=== PATIENT | male | born 1985 | race Caucasian/White ===

== ENCOUNTER 2016-11-08 21:11 | Emergency (ER) ==
[2016-11-08 22:08] LABS: APPEARANCE,URINE CLEAR; BILIRUBIN,URINE NEGATIVE (NEGATIVE); GLUCOSE, URINE NEGATIVE (NEGATIVE); KETONES,URINE NEGATIVE (NEGATIVE); LEUKOCYTE ESTERASE,URINE NEGATIVE (NEGATIVE); NITRITE,URINE NEGATIVE (NEGATIVE); PROTEIN,URINE NEGATIVE (NEGATIVE); URINE SPECIFIC GRAVITY 1.012; UROBILINOGEN,URINE NEGATIVE mg/dL (<2.0)
[2016-11-08 22:23] LABS: ALANINE AMINOTRANSFERASE 39 U/L (21-72); ALBUMIN 4.9 g/dL (3.5-5.0); ALKALINE PHOSPHATASE 72 U/L (38-126); ANION GAP 14 (5-19); ASPARTATE AMINO TRANSFERASE 34 U/L (17-59); BILIRUBIN,DIRECT 0.3 mg/dL (0.0-0.4); BILIRUBIN,TOTAL 0.6 mg/dL (0.2-1.3); BLOOD UREA NITROGEN 11 mg/dL (7-20); CARBON DIOXIDE 28 mmol/L (22-30); CHLORIDE 101 mmol/L (98-107); CREATININE RESULT 0.88 mg/dL (0.52-1.25); GLUCOSE 90 mg/dL (75-110); LIPASE 37.6 U/L (23-300); POTASSIUM 4.1 mmol/L (3.6-5.0); SODIUM 143.2 mmol/L (137-145); TOTAL PROTEIN 7.7 g/dL (6.3-8.2)
[2016-11-08 22:34] LABS: ABSOLUTE EOSINOPHILS # (AUTO) 0.2 10^3/uL (0.0-0.6); ABSOLUTE LYMPHOCYTES (AUTO) 1.9 10^3/uL (0.5-4.7); ABSOLUTE MONOCYTES (AUTO) 0.7 10^3/uL (0.1-1.4); ABSOLUTE NEUT (AUTO) 5.7 10^3/uL (1.7-8.2); BASOPHILS % (AUTO) 0.4 % (0-2); EOSINOPHILS % (AUTO) 2.8 % (0-6); HEMATOCRIT 45.4 % (37.9-51.0); HEMOGLOBIN 15.8 g/dL (13.5-17.0); LYMPHOCYTES % (AUTO) 22.3 % (13-45); MEAN CORPUSCULAR HEMOGLOBIN 31.6 pg (27.0-33.4); MEAN CORPUSCULAR HGB CONC 34.9 g/dL (32.0-36.0); MEAN CORPUSCULAR VOLUME 91 fl (80-97); MONOCYTES % (AUTO) 8.6 % (3-13); RED BLOOD COUNT 5.01 10^6/uL (4.35-5.55); RED CELL DISTRIBUTION WIDTH 13.2 % (11.5-14.0); SEGMENTED NEUTROPHILS % (AUTO) 65.9 % (42-78); WHITE BLOOD COUNT 8.6 10^3/uL (4.0-10.5)
== END 2016-11-09 04:31 | disposition left against medical advice (07) ==
LOC: ER 21:11
DX: Z53.9 Procedure and treatment not carried out, unspecified reason (principal); R05 Cough
CPT/HCPCS: 36415; 71020; 80053; 81001; 83690; 85025

== ENCOUNTER 2020-01-20 14:30 | Emergency (ER) | payer SELFPAY ==
--- NOTE | 2020-01-20 15:13 | EKG REPORT ---
SEVERITY:- NORMAL ECG - SINUS RHYTHM : Confirmed by: Mikael Franz MD 20-Jan-2020 15:13:27
[2020-01-20] MEDS ORDERED: ONDANSETRON HCL INJ/PF 4 MG/2 ML SDV IV ONE (15:22)
[2020-01-20] MEDS ORDERED: RINGERS SOLUTION,LACTATED 1,000 ML IV ONE (15:22)
[2020-01-20] MEDS ORDERED: MORPHINE SULFATE 10 MG/ML INJ IV PRN (15:22)
--- NOTE | 2020-01-20 15:24 | ER Document Report ---
ED Medical Screen (RME) - General Chief Complaint: Chest Pain Stated Complaint: CHEST PAIN Time Seen by Provider: 01/20/20 15:17 Mode of Arrival: Ambulatory Information source: Patient Notes: HPI; 34-year-old male presents emergency room complaining of mid epigastric pain and abdominal pain for the past 4 days. Complains of nausea but no vomiting. Has been taking Tylenol and ibuprofen with minimal relief. No shortness of breath, no difficulty breathing. No urinary symptoms. PE: Alert and oriented x3. Mild stress noted. Lungs: Clear to auscultation without rales rhonchi wheezes. Heart: Regular rate rhythm without murmurs rubs or gallops. Tender to palpation to the midepigastric region. No guarding, no rebound, abdomen distended. Unable to do full abdominal exam in triage. I have greeted and performed a rapid initial assessment of this patient. A comprehensive ED assessment and evaluation of the patient, analysis of test results and completion of the medical decision making process will be conducted by additional ED providers. I have specifically instructed the patient or family members with the patient to immediately return to any nursing staff should anything change in the patient's condition or with their chief complaint. TRAVEL OUTSIDE OF THE [place] IN LAST 30 DAYS: No - Related Data Allergies/Adverse Reactions: No Known Allergies Allergy (Verified 01/20/20 15:16) Home Medications: nexium. ibuprofen Past Medical History - Social History Chew tobacco use (# tins/day): No Frequency of alcohol use: Social Drug Abuse: None Renal/ Medical History: Denies: Hx Peritoneal Dialysis Physical Exam - Vital signs Vitals: Temp Pulse Resp BP Pulse Ox 99 F 87 14 133/78 H 99 01/20/20 14:38 01/20/20 14:38 01/20/20 14:38 01/20/20 14:38 01/20/20 14:38 Course - Vital Signs Vital signs: Temp Pulse Resp BP Pulse Ox 99.0 F 87 14 133/78 H 99 01/20/20 15:17 01/20/20 14:38 01/20/20 14:38 01/20/20 14:38 01/20/20 14:38
[2020-01-20 15:51] LABS: ABSOLUTE BASOPHILS # (AUTO) 0.1 10^3/uL (0.0-0.2); ABSOLUTE EOSINOPHILS # (AUTO) 0.1 10^3/uL (0.0-0.6); ABSOLUTE LYMPHOCYTES (AUTO) 1.6 10^3/uL (0.5-4.7); ABSOLUTE MONOCYTES (AUTO) 0.7 10^3/uL (0.1-1.4); ABSOLUTE NEUT (AUTO) 6.6 10^3/uL (1.7-8.2); BASOPHILS % (AUTO) 0.6 % (0-2); EOSINOPHILS % (AUTO) 1.4 % (0-6); HEMATOCRIT 45.1 % (37.9-51.0); HEMOGLOBIN 15.8 g/dL (13.5-17.0); MEAN CORPUSCULAR VOLUME 88 fl (80-97); PLATELET COUNT 318 10^3/uL (150-450); RED BLOOD COUNT 5.11 10^6/uL (4.35-5.55); RED CELL DISTRIBUTION WIDTH 12.9 % (11.5-14.0); TOTAL CELLS COUNTED % (AUTO) 100 %; WHITE BLOOD COUNT 9.1 10^3/uL (4.0-10.5)
--- NOTE | 2020-01-20 16:04 | RADIOLOGY REPORT (SQ) ---
EXAM DESCRIPTION: CT ABD/PELVIS WITH IV ONLY IMAGES COMPLETED DATE/TIME: 01/20/2020 3:54 pm REASON FOR STUDY: abdominal pain COMPARISON: None. TECHNIQUE: CT scan of the abdomen and pelvis performed using helical scanning technique with dynamic intravenous contrast injection. No oral contrast. Images reviewed with lung, soft tissue, and bone windows. Reconstructed coronal and sagittal MPR images reviewed. Delayed images for evaluation of the urinary system also acquired. All images stored on PACS. All CT scanners at this facility use dose modulation, iterative reconstruction, and/or weight based d osing when appropriate to reduce radiation dose to as low as reasonably achievable (ALARA). [facility]: Dose Right [facility]: CareDose [facility]: Dose Right [facility]: Teradose 4D [facility]: [employer] CONTRAST TYPE AND DOSE: 100 Isovue 370- low osmolar. RENAL FUNCTION: Not known RADIATION DOSE: . LIMITATIONS: None. FINDINGS: LOWER CHEST: No significant findings. No nodules or infiltrates. LIVER: Normal size. No masses. No dilated ducts. SPLEEN: Normal size. No focal lesions. PANCREAS: No masses. No significant calcifications. No adjacent inflammation or peripancreatic fluid collections. Pancreatic duct not dilated. GALLBLADDER: Contracted gallbladder with gallstone. ADRENAL GLANDS: No significant masses or asymmetry. RIGHT KIDNEY AND URETER: No solid masses. No significant calcifications. No hydronephrosis or hyd roureter. LEFT KIDNEY AND URETER: No solid masses. No significant calcifications. No hydronephrosis or hydr oureter. AORTA AND VESSELS: No aneurysm. No dissection. Renal arteries, SMA, celiac without stenosis. RETROPERITONEUM: No retroperitoneal adenopathy, hemorrhage or masses. BOWEL AND PERITONEAL CAVITY: No masses or inflammatory changes. No free fluid or peritoneal masses. APPENDIX: Normal. PELVIS: No mass. No free fluid. Normal bladder. ABDOMINAL WALL: No masses. No hernias. BONES: No significant or acute findings. OTHER: No other significant finding. IMPRESSION: Contracted gallbladder with gallstone. TECHNICAL DOCUMENTATION: JOB ID: [id number] Quality ID # [id number]: Final reports with documentation of one or more dose reduction techniques (e.g., Au tomated exposure control, adjustment of the mA and/or kV according to patient size, use of iterative reconstruction technique) 2010 [employer]- All Rights Reserved Reading location - IP/workstation name: [email or web address]
[2020-01-20 16:05] LABS: BLOOD UREA NITROGEN 20 mg/dL (7-20); CALCIUM 9.8 mg/dL (8.4-10.2); CARBON DIOXIDE 26 mmol/L (22-30); CHLORIDE 103 mmol/L (98-107); GLUCOSE 104 mg/dL (75-110); POTASSIUM 4.3 mmol/L (3.6-5.0)
[2020-01-20 16:06] LABS: ALBUMIN 4.8 g/dL (3.5-5.0); ALKALINE PHOSPHATASE 68 U/L (38-126); ANION GAP 11 (5-19); ASPARTATE AMINO TRANSFERASE 31 U/L (17-59); BILIRUBIN,TOTAL 0.7 mg/dL (0.2-1.3); CREATINE KINASE 130 U/L (55-170); TOTAL PROTEIN 7.9 g/dL (6.3-8.2)
[2020-01-20 16:16] LABS: CREATINE KINASE MB 1.83 ng/mL (<4.55)
[2020-01-20 16:17] LABS: TROPONIN I < 0.012 ng/mL
[2020-01-20 16:47] LABS: APPEARANCE,URINE CLEAR; BILIRUBIN,URINE NEGATIVE (NEGATIVE); COLOR,URINE YELLOW; GLUCOSE, URINE NEGATIVE (NEGATIVE); KETONES,URINE NEGATIVE (NEGATIVE); LEUKOCYTE ESTERASE,URINE NEGATIVE (NEGATIVE); NITRITE,URINE NEGATIVE (NEGATIVE); PROTEIN,URINE NEGATIVE (NEGATIVE); UROBILINOGEN,URINE NEGATIVE mg/dL (<2.0)
--- NOTE | 2020-01-20 17:16 | ER Document Report ---
ED General - General Mode of Arrival: Ambulatory TRAVEL OUTSIDE OF THE [place] IN LAST 30 DAYS: No - Related Data Home Medications: nexium. ibuprofen <CARMEN GOLDEN - Last Filed: 01/20/20 19:14> <STEFANIE SHANE IV - Last Filed: 01/21/20 06:11> - General Chief Complaint: Chest Pain Stated Complaint: CHEST PAIN Time Seen by Provider: 01/20/20 15:17 Primary Care Provider: JANIE OCHOA PA-C [Primary Care Provider] - Follow up as needed WINSTON SINGH MD [ACTIVE STAFF] - Follow up as needed Notes: 34-year-old man presents to the emergency department with a complaint of epigastric pain which has been ongoing for the past 6 weeks or greater. States that he quit smoking in July and has since that time picked up approximately 60 pounds in weight. He has been noticing increasing gas and increasing heartburn-like symptoms especially when he eats pizza or starchy foods. He is also been noticing discomfort to touch in the epigastric region over the past few days. (CARMEN GOLDEN) - Related Data Allergies/Adverse Reactions: No Known Allergies Allergy (Verified 01/20/20 15:16) Past Medical History - General Information source: Patient - Social History Smoking Status: Former Smoker Chew tobacco use (# tins/day): No Frequency of alcohol use: Social Drug Abuse: None Patient has homicidal ideation: No Renal/ Medical History: Denies: Hx Peritoneal Dialysis <CARMEN GOLDEN - Last Filed: 01/20/20 19:14> - General Information source: Patient - Social History Smoking Status: Former Smoker Family History: Reviewed & Not Pertinent <STEFANIE SHANE IV - Last Filed: 01/21/20 06:11> Review of Systems <CARMEN GOLDEN - Last Filed: 01/20/20 19:14> - Review of Systems Notes: Constitutional: Negative for fever. HENT: Negative for sore throat. Eyes: Negative for visual changes. Cardiovascular: Negative for chest pain. Respiratory: Negative for shortness of breath. Gastrointestinal: + Epigastric pain, + left upper quadrant pain Genitourinary: Negative for dysuria. Musculoskeletal: Negative for back pain. Skin: Negative for rash. Neurological: Negative for headaches, weakness or numbness. 10 point ROS negative except as marked above and in HPI. (CARMEN GOLDEN) Physical Exam <CARMEN GOLDEN - Last Filed: 01/20/20 19:14> - Vital signs Vitals: Temp Pulse Resp BP Pulse Ox 99 F 87 14 133/78 H 99 01/20/20 14:38 01/20/20 14:38 01/20/20 14:38 01/20/20 14:38 01/20/20 14:38 - Notes Notes: PHYSICAL EXAMINATION: Physical Exam: General: Well-nourished well-developed overweight male in mild distress secondary to epigastric pain HEENT: NC/AT, pupils equal round and reactive to light, MM moist,nares clear, oropharynx clear, airway patent Neck: supple, no adenopathy, no masses. Good range of motion Lungs: clear, no wheezing, no rales no rhonchi CVS: Regular rate and rhythm no murmur gallop or rub Abdomen: Soft, active, in the epigastric and left upper quadrant region, no guarding, no rebound, no masses. Ext: No edema, clubbing or cyanosis. Neuro: Alert and responsive, moving all 4 extremities on command, cranial nerves intact, no focal findings Skin: Intact no open lesions, no rash PSYCH: Normal mood, normal affect. (CARMEN GOLDEN) Course - Laboratory Result Diagrams: 01/20/20 15:37 01/20/20 15:37 - Diagnostic Test Radiology reviewed: Image reviewed, Reports reviewed - EKG Interpretation by Nv EKG shows normal: Sinus rhythm - EKG reveals: Normal sinus rhythm with rate of 89, no acute ST or T wave abnormalities, normal axis. <CARMEN GOLDEN - Last Filed: 01/20/20 19:14> - Laboratory Result Diagrams: 01/20/20 15:37 01/20/20 15:37 <STEFANIE SHANE IV - Last Filed: 01/21/20 06:11> - Re-evaluation Re-evalutation: 01/20/20 19:18 Patient describes history of acid reflux and also history of gall stones. CT scan performed today revealed gallstones and a contracted gallbladder. His LFTs are normal and his WBC count is also normal. A lipase has been added to the lab work as well as a gallbladder ultrasound. Patient is given Toradol and a GI cocktail for symptoms. If the gallbladder ultrasound is not remarkable, he may be discharged home with high-dose PPI and Carafate. I would suggest follow-up with gastroenterology for upper endoscopy. (CARMEN GOLDEN) - Vital Signs Vital signs: Temp Pulse Resp BP Pulse Ox 98.1 F 66 16 157/90 H 96 01/20/20 21:01 01/20/20 21:01 01/20/20 21:01 01/20/20 21:01 01/20/20 21:01 - Laboratory Laboratory results interpreted by me: 01/20/20 14:33 Urine Ascorbic Acid 40 H I have reviewed laboratory data and used this information for the treatment decisions regarding the patient. (CARMEN GOLDEN) - Diagnostic Test Radiology results interpreted by la: 01/20/20 19:27 CT abdomen and pelvis with IV contrast reveals: No acute intra-abdominal findings, the gallbladder contracted and positive gallstones. (CARMEN GOLDEN) Discharge <CARMEN GOLDEN - Last Filed: 01/20/20 19:14> <STEFANIE SHANE IV - Last Filed: 01/21/20 06:11> - Discharge Clinical Impression: Esophagitis, Epigastric pain, Sinusitis GERD (gastroesophageal reflux disease) Qualifiers: Esophagitis presence: esophagitis presence not specified Qualified Code(s): K21.9 - Gastro-esophageal reflux disease without esophagitis Condition: Good Disposition: HOME, SELF-CARE Instructions: Esophagitis (OM) Additional Instructions: He was diagnosed with epigastric abdominal pain likely secondary to reflux and esophagitis. You are being prescribed medications Protonix and Carafate to begin as an outpatient for treatment. Because her symptoms have been consistent over the past few weeks, a referral for gastroenterology and upper endoscopy is recommended. Please see your primary care doctor for a referral or you may call the prepared foods associate whose name you have been provided to see if they will see you as a referral from the emergency department. If your symptoms are worsening or if you have other concerns you may return to the emergency department for further evaluation and treatment. HOME CARE INSTRUCTIONS & INFORMATION: Thank you for choosing us for your medical needs. We hope you're satisfied with the care you received. After you leave, you must properly care for your problem and, at the same time, observe its progress. Any condition can change. Some illnesses can change rapidly over hours or days. If your condition worsens, return to the Emergency Department or see your physician promptly. ABOUT YOUR X-RAYS AND EKG'S: If you had an EKG or X-rays taken, they have been read by the Emergency Physician. The X-rays and EKG's will also be read by a Radiologist or [employer] within 24 hours. If discrepancies are noted, you will be notified by telephone. Please be certain the ED has a correct telephone number & address where you can be reached. Also, realize that some fractures or abnormalities do not show up on initial X-rays. If your symptoms continue, see your physician. ABOUT YOUR LABORATORY TEST: If you had laboratory tests, the results have been reviewed by the Emergency Physician. Some test results (for example cultures) may not be available for several days. You will be contacted if any test result shows you need additional treatment. Please be certain the ED has a correct telephone number and address where you can be reached. ABOUT YOUR MEDICATIONS: You will receive instructions on how to take your medicine on the prescription label you receive. Additional information may be provided by the Pharmacy. If you have questions afterwards, call the ED for clarification or further instructions. Some prescribed medications may cause drowsiness. Do not perform tasks such as driving a car or operating machinery without consulting your Pharmacist. If you feel you need a refill of pain medication, your condition will need re-evaluation. Please do not call for a refill of any medication. ABOUT YOUR SIGNATURE: Signature of this document acknowledges to followin. Understanding that you received emergency treatment and that you may be released before al medical problems are known or treated. Please be certain the ED has a correct phone number & address where you can be reached. 2. Acknowledgement that you will arrange for follow-up care as recommended. 3. Authorization for the Emergency Physician to provide information to your follow-up Physician in order to maximize your care. AT ANY TIME, IF YOUR SYMPTOMS CHANGE SIGNIFICANTLY OR WORSEN OR YOU DEVELOP NEW SYMPTOMS, RETURN TO THE EMERGENCY DEPARTMENT IMMEDIATELY FOR RE-EVALUATION. OUR GOAL IS TO PROVIDE EXCELLENT MEDICAL CARE! WE HOPE THAT WE HAVE MET YOUR EXPECTATIONS DURING YOUR EMERGENCY DEPARTMENT VISIT AND THAT YOU FEEL YOU HAVE RECEIVED EXCELLENT CARE! Sinusitis You have sinusitis, an infection of the sinus cavities of the face. The sinuses are air-filled chambers which open into the inside of the nose. Bacteria and pus fill a sinus, causing pain, drainage, and fever. Sinusitis is treated with antibiotics. Often, expectorants (to thin the sinus mucous) or decongestants (to reduce swelling) are prescribed as well. Healing requires seven to 10 days. Avoid chemical fumes, pollens, dusts, and smoke (especially cigarette smoke). Keep the air humidified in your bedroom and work area and take plenty of liquids by mouth. This condition can be serious if the infection spreads. If your symptoms worsen, or if you develop severe headache, high fever, stiff neck, or a rash, you must call the doctor or return for re-evaluation. Prescriptions: Sucralfate [Carafate 1 gm Tablet] 1 gm PO ACHS #60 tablet Levofloxacin [Levaquin 750 mg Tablet] 750 mg PO DAILY 5 Days #5 tablet Pantoprazole Sodium [Protonix] 40 mg PO DAILY #20 tablet. Referrals: JANIE OCHOA PA-C [Primary Care Provider] - Follow up as needed WINSTON SINGH MD [ACTIVE STAFF] - Follow up as needed
[2020-01-20 17:21] LABS: URINE SPECIFIC GRAVITY > 1.060
[2020-01-20] MEDS ORDERED: KETOROLAC TROMETHAMINE INJ/PF 30 MG/1 ML SDV IV ONE (18:26)
[2020-01-20] MEDS ORDERED: METOCLOPRAMIDE HCL ORAL SOLN 10 MG/10 ML UDCUP PO ONE (18:27)
[2020-01-20] MEDS ORDERED: LIDOCAINE 2% VISCOUS SOLN 15 ML UDCUP PO ONE (18:27)
[2020-01-20] MEDS ORDERED: MAG HYDROX/AL HYDROX/SIMETH SUSP 30 ML UDCUP PO ONE (18:27)
--- NOTE | 2020-01-20 20:32 | RADIOLOGY REPORT (SQ) ---
CLINICAL INDICATION: Epigastric abdominal pain. Cholelithiasis. TECHNIQUE: Real time multiplanar ultrasonographic hill scale imaging was obtained of the right upper quadrant. 63 images obtained. COMPARISON: None. CORRELATION: CT earlier today and report of same. FINDINGS: The liver is of increased echotexture. More dependent portions of the liver are not well seen due to echodensity of the near field. Liver is enlarged at 17.2 cm.. No evidence of intrahepatic or extrahepatic biliary ductal dilatation. The common bile duct measures 2 millimeters. Portal vein is patent and appropriate in the visualized portion. The gallbladder is contracted with cholelithiasis. No surrounding inflammatory changes. No evidence of gallbladder wall thickening or edema. The midline structures are unremarkable in the visualized portion. . Right kidney measures 10.5 cm in greatest dimension. It is unremarkable IMPRESSION: Hepatic steatosis. Cholelithiasis without cholecystitis or ductal dilatation.
--- NOTE | 2020-01-20 20:38 | ER Document Report ---
Doctor's Note Notes: 01/20/20 20:36 Patient was checked out to this MD by Dr. Cortes at 2000 hrs. Patient was awaiting results of gallbladder ultrasound. Dr. Cortes instructed this MD that if the ultrasound was unremarkable the patient could be discharged home. The gallbladder ultrasound showing no evidence of cholecystitis. There is cho lelithiasis but no gallbladder wall thickening or pericholecystic fluid. This MD will relate results of ultrasound patient and then discharge patient.
[2020-01-20 20:46] VITALS: BP 157/90
== END 2020-01-20 21:02 | disposition home or self-care (01) ==
LOC: ER 14:30
DX: K20.9 Esophagitis, unspecified (principal); R10.13 Epigastric pain; K21.9 Gastro-esophageal reflux disease without esophagitis; J32.9 Chronic sinusitis, unspecified; R11.0 Nausea; R07.9 Chest pain, unspecified
CPT/HCPCS: 93005; 99285; 96361; 96374; 96375; 36415; 82553; 82550; 83690; 85025; 80053; 81001; 84484; 76705; 74177; 93010; J3490; J1885; J2405; J7120